=== PATIENT | female | born 1990 | race Caucasian/White ===

== ENCOUNTER → 2025-07-17 11:20 | Outpatient (CLI) | payer OTHER, SELFPAY ==
[2025-07-17 12:57] LABS: TSH w/ Reflex to FT4 2.57 uIU/mL (0.47-4.68)
[2025-07-17 15:27] LABS: Urine N gonorrhoeae NOT DETECTED
[2025-07-17 15:30] LABS: Urine Chlamydia NOT DETECTED
[2025-07-17 17:22] LABS: HIV 1 & 2 Ab/Ag 4th Gen Combo NEGATIVE (NEGATIVE); Hep C Virus Ab w/Reflex Quant NEGATIVE s/c (NEGATIVE)
[2025-07-18 00:20] LABS: Hepatitis B Core AB w/Reflex Negative (Negative)
== END ==
PROVIDERS: PCP Family Medicine; Referring Provider Obstetrics & Gynecology; Visit Provider Obstetrics & Gynecology
DX: Z30.09 Encounter for other general counseling and advice on contraception (principal); N96 Recurrent pregnancy loss; Z20.2 Contact with and (suspected) exposure to infections with a predominantly sexual mode of transmission
CPT/HCPCS: 36415; 81241; 84146; 84443; 85613; 85732; 86146; 86147; 86592; 86704; 86803; 87389; 87491; 87591